=== PATIENT | female | born 1980 | race Caucasian/White ===

== ENCOUNTER 2017-02-25 14:38 | Emergency (ER) | payer OTHER ==
[~2017-02-25] VITALS: Ht 160 cm; Wt 124.5 kg
[2017-02-25 14:47] VITALS: Ht 160 cm; Wt 124.5 kg
--- NOTE | 2017-02-25 17:13 | ERD ---
ER Documentation Chief Complaint Chief Complaint FEVER , ST , COUGH , CHEST CONGESTION , EAR PAIN X 2 DAYS HPI 36-year-old previously healthy, presents to the emergency department complaining of 2 days with subjective fever, sore throat, productive cough worse at night and chest congestion. The patient has tried [id number] medication with mild improvement of the symptoms. Influenza vaccine up-to-date ROS A 12-point review of systems was performed and negative other than presented in the history of present illness. SYSTEMIC symptoms: Subjective fever, chills, no night sweats, no weight loss EYE symptoms: No blurred vision, no eye discharge OTOLARYNGEAL symptoms: No hearing loss. Positive for ear pain and sore throat CARDIOVASCULAR symptoms: No chest pain or discomfort, no palpitations. PULMONARY symptoms: Per HPI GASTROINTESTINAL symptoms: No abdominal pain, no nausea, no vomiting, no diarrhea MUSCULOSKELETAL symptoms: No arthralgias, no muscle aches. NEUROLOGY symptoms: No confusion, no syncope, no numbness or tingling. SKIN: No rashes Medications Home Meds Active Scripts Cetirizine Hcl* (Zyrtec*) 10 Mg Capsule, 10 MG PO DAILY Y for congestion, #10 TAB.CHEW Prov:MALLORY FRANKLIN MD 02/25/17 Ibuprofen* (Motrin*) 600 Mg Tab, 600 MG PO Q6H Y for PAIN AND OR ELEVATED TEMP, #30 TAB Prov:MALLORY FRANKLIN MD 02/25/17 Promethazine HCl/Codeine (Prometh-Codein 6.25-10 mg/5 ml) 5 Ml Syrup, 5 ML PO TID Y for COUGH, #120 ML Prov:MALLORY FRANKLIN MD 02/25/17 PMhx/Soc Medical and Surgical Hx: pt denies Surgical Hx History of Surgery: No Anesthesia Reaction: No Hx Neurological Disorder: No Hx Respiratory Disorders: No Hx Cardiac Disorders: No Hx Psychiatric Problems: No Hx Miscellaneous Medical Probl: Yes ("PRE-DIABETES") Hx Alcohol Use: No Hx Substance Use: No Hx Tobacco Use: No Smoking Status: Never smoker Physical Exam Vitals Vital Signs Date Time Temp Pulse Resp B/P Pulse Ox O2 Delivery O2 Flow Rate FiO2 02/25/17 14:47 100.7 104 18 178/95 97 Physical Exam Patient is in no acute distress, vital signs stable. Alert and fully oriented. EYES: PERRLA, EOMI, Sclera and conjunctiva appear normal. EARS: Canals clear, tympanic membranes WNL THROAT: Erythematous oropharynx, tonsils enlarged no exudate NECK: Supple, No lymphadenopathy. Full ROM without pain or tenderness. HEART: RRR, no rubs, murmurs, clicks or gallops. LUNGS: Clear to auscultation. ABDOMEN: Soft, non-tender without masses or hepatosplenomegaly. EXTREMITIES: No edema bilaterally. BACK: Full ROM, no deformity, normal back exam NEURO: Cranial nerves grossly intact, no motor or sensory deficit Procedures/MDM 36-year-old female, presents complaining of worsening of upper respiratory symptoms. Vital signs stable, except for mild elevation of the blood pressure, no history of hypertension. Physical exam revealed erythematous oropharynx.. Differential diagnosis include but not limited to: Respiratory infection bacterial/viral/fungal. Asthma/COPD, pneumonitis, allergies, GERD. Less likely foreign body aspiration, cardiac related, aspiration pneumonia, malignancy. Physical examination and clinical presentation consistent most likely with viral syndrome. During the ED course the patient remained stable, no new complaints. Results and clinical impression discussed with patient who agrees with management. The patient is stable to be treated outpatient and will be discharged home with a Rx for cough medication and ibuprofen, antibiotics not indicated at this time. some side effects of prescribed medications (headache, rash, nausea, vomiting, diarrhea, drowsiness, habituation, bleeding, hypertension, interactions with other medications) were reviewed. The patient was instructed to follow up with the primary care provider in the next 48h. If symptoms persist, worsen or new symptoms develop, then patient should return to the ED immediately. Disclaimer: Inadvertent spelling and grammatical errors are likely due to EHR/ dictation software use and do not reflect on the overall quality of patient care. Also, please note that the electronic time recorded on this note does not necessarily reflect the actual time of the patient encounter. Departure Diagnosis: Primary Impression: Acute pharyngitis Condition: Stable Additional Instructions: Call your primary care doctor TOMORROW for an appointment during the next 1-2 days. See the doctor sooner or return here if your condition worsens before your appointment time. Thank you very much for allowing us to participate in your care. Your health and safety is our top priority at [facility]. Have prescriptions filled and follow precisely the directions on the label. Follow-up with primary care provider during the next 4 days and bring all the information and medications prescribed. If illness has not improved in 2 days, then make an appointment with primary care provider. If the provider is unavailable, return to the Emergency Department immediately. MALLORY FRANKLIN MD Feb 25, 2017 17:13
[2017-02-25] MEDS ORDERED: PROM5SYR2 PO (17:52)
[2017-02-25] MEDS ORDERED: IBUP-1542 PO (17:53)
[2017-02-25] MEDS ORDERED: CETI10CA PO (17:54)
== END 2017-02-25 18:57 | disposition home or self-care (01) ==
LOC: FTE 14:38
DX: J02.9 Acute pharyngitis, unspecified (principal)
CPT/HCPCS: 99283